=== PATIENT | female | born 1940 | race Caucasian/White ===

== ENCOUNTER 2022-05-07 12:54 | Outpatient (RCR) | payer MEDICARE, OTHER, SELFPAY | END 2023-05-01 23:59 | disposition home or self-care (01) | PROVIDERS: PCP Family Medicine; Visit Provider Family Medicine | DX: R53.1 Weakness (principal); R20.0 Anesthesia of skin; Z51.89 Encounter for other specified aftercare | CPT/HCPCS: 97165 ==

== ENCOUNTER 2022-06-03 09:04 | Outpatient (CLI) | payer MEDICARE, OTHER, SELFPAY | END 2022-06-03 09:05 | disposition home or self-care (01) | LOC: OP CLINIC 09:06 | PROVIDERS: PCP Family Medicine; Visit Provider Internal Medicine Gastroenterology | DX: K52.9 Noninfective gastroenteritis and colitis, unspecified (principal) | CPT/HCPCS: 45380; 88305; 99153; J2250; J3010 ==

== ENCOUNTER 2023-12-22 12:41 | Emergency (ER) | payer MEDICARE, OTHER, SELFPAY ==
[2023-12-22 12:52] VITALS: BP 112/76; PULSE 71; RESP 16; TEMP 36.2; O2SAT 98; BMI 19.4
--- NOTE | 2023-12-22 12:58 | ED_ITS ---
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 Did steroids twice but stopped them due to the side effects. Has been more anxious and under stress since passed a few years ago, and patient now having eye troubles that she goes to [facility] for. She has lost a few pounds and now weighs 105.8lbs . Normally 109lbs. Friday was nauseous but did not throw up. Celebrated her birthday with family yesterday and was okay. Today she threw up her breakfast and feels something isn't right in her esophagus and stomach. Here for evaluation. Couldnt see her PCP until 83-year-old woman presenting to the emergency department with concern of intermittent diarrhea. She has not noted any hematochezia at this point. Underlying history microscopic colitis. She did vomit her breakfast this morning and just feels that something isn't right. Is down a few lb of weight. Has had diarrheal stools over the last few days yesterday had 3 bowel movements 1 of which was formed. Has not had any fever. Isn't having terrible pain the stomach is a little more gurgly. Is anticipating a trip with her sons and family who are visiting, to the [place] and does not want to be feeling unwell during that trip. Would like to feel better. She does feel like she can keep her fluids down. Underlying history of stress as noticed above and seems to suggest that stress might be contributing to her current symptoms. Has been taking some supplements particularly in the form of probiotics which she thinks have been helpful. Related Data Home Medications Medication Instructions Recorded Confirmed acetaminophen 650 mg 650 mg PO DAILY 12/22/23 12/22/23 tablet,extended release (Pain Relief (acetaminophen)) alendronate 70 mg tablet 70 mg PO .weekly 12/22/23 12/22/23 aspirin 81 mg capsule 81 mg PO DAILY 12/22/23 12/22/23 levothyroxine 75 mcg tablet 75 mcg PO DAILY 12/22/23 12/22/23 Allergies Allergy/AdvReac Type Severity Reaction Status Date / Time thimerosal Allergy Intermediate Rash Verified 06/03/22 12:10 insect venom Allergy Mild Itching Verified 06/03/22 12:10 Hibaclens Allergy Mild Rash Uncoded 06/03/22 12:10 Review of Systems Status of ROS: Reports: 6 or more systems reviewed and unremarkable except as noted in History and below Exam Narrative: Exam Narrative: Pleasant. Thin. Smaller stature. Elaborating. Breathing easily. Oropharynx is little dry. Lungs are clear. Breathing easily. Heart in regular rate and rhythm. Abdomen is soft and a ittle uncomfortable to palpation lower abdomen but really pretty benign. No peritoneal signs. No masses either. Extremities are well perfused. Lower extremities are without edema Const: Vital Signs, click to edit/add: Vital Signs - 24 hr 12/22/23 12:52 Temperature 97.1 F L Pulse Rate [Pulse Oximeter] 71 Respiratory Rate 16 Blood Pressure [Ri ght Upper Arm] 112/76 Pulse Oximetry 98 Oxygen Delivery Me thod Room Air Documenting provider has reviewed patient's vital signs: yes Course Vital Signs Vital signs: Initial Vital Signs Temperature 97.1 F L 12/22/23 12:52 Temperature Source Temporal Artery Scan 12/22/23 12:52 Pulse Rate 71 12/22/23 12:52 Pulse Rhythm Regular 12/22/23 12:52 Pulse Strength 3+ Normal 12/22/23 12:52 Respiratory Rate 16 12/22/23 12:52 Blood Pressure 112/76 12/22/23 12:52 Blood Pressure Mean 88 12/22/23 12:52 Blood Pressure Position Sitting 12/22/23 12:52 Pulse Oximetry 98 12/22/23 12:52 Oxygen Delivery Method Room Air 12/22/23 12:52 Vital Signs Temperature 97.1 F L 12/22/23 12:52 Pulse Rate 71 12/22/23 12:52 Respiratory Rate 16 12/22/23 12:52 Blood Pressure 112/76 12/22/23 12:52 Pulse Oximetry 98 12/22/23 12:52 Oxygen Delivery Method Room Air 12/22/23 12:52 Temperature 97.1 F L 12/22/23 12:52 Pulse Rate 71 12/22/23 12:52 Respiratory Rate 16 12/22/23 12:52 Blood Pressure 112/76 12/22/23 12:52 Pulse Oximetry 98 12/22/23 12:52 Oxygen Delivery Method Room Air 12/22/23 12:52 Medications Administered Medications: Discontinued Medications Generic Name Dose Route Start Last Admin Trade Name Florentin PRN Reason Stop Dose Admin Ondansetron HCl 4 mg 12/22/23 14:46 12/22/23 14:55 Ondansetron Odt 4 Mg Tab PO 12/22/23 14:47 4 mg ONCE ONE Administration Medical Decision Making MDM Narrative Medical decision making narrative: Unclear what was exactly being asked during our conversation. Clarified to that she would like to feel better and I think just wants to make sure that nothing more is wrong. Has not reached out to primary other than trying to get an appointment and not being able to get 1 for some weeks. Did offer some IV hydration though she does not feel it will be necessary. Will check some labs for red flags, inflammatory markers. Physical exam is pretty benign at this time. Will give a dose of Zofran. Think this would help her feel better Labs labs are reassuring generally with a sodium of 131. Unsure baseline. Labs also would not suggest significant inflammation. I did discuss this case with Dr. Auguste her GI provider. Thinks less likely microscopic colitis as also with vomiting. Taper dosing of betamethasone however was discussed verses loperamide and Pepto-Bismol. Ms. Lucas has used loperamide successfully in the past. Responded well to antiemetic. Did feel better. Was ready to depart the emergency department with good vitals. Considering upcoming travel with family and mild lymphocytic suppression in CBC, did opt to swab for COVID prior to departure. This will be done with triple swab due to community prevalence of influenza and associated gastrointestinal symptoms. See patient discharge plan for further discussion Lab Data Lab results reviewed: Yes I reviewed the patient's lab results Labs: Lab Results 12/22/23 12/22/23 12/22/23 Range/Units 15:04 16:32 17:50 WBC 4.47 L (4.50-11.00) K/uL RBC 3.93 L (4.00-5.20) m/uL Hgb 12.5 (12.0-16.0) gm/dL Hct 38.4 (33.0-51.0) % MCV 98 (80-100) fL MCH 32 (26-34) pg MCHC 33 (32-36) gm/dL RDW Coeff of La 13.0 (11.5-15.5) % Plt Count 301 (140-440) K/uL Neut % (Auto) 64.4 (42.0-72.0) % Lymph % (Auto) 17.4 L (20-44) % [place]eson % (Auto) 11.2 H (0.0-11.0) % Eos % (Auto) 6.3 (0.0-7.0) % Baso % (Auto) 0.7 (0.0-3.0) % Neut # (Auto) 2.90 (1.7-7.0) K/uL Lymph # (Auto) 0.80 L (0.90-2.90) K/uL Robeson # (Auto) 0.50 (0.00-0.90) K/UL Eos # (Auto) 0.30 (0.00-0.50) K/uL Baso # (Auto) 0.00 (0.00-0.30) K/uL Abs Immat Gran (auto) 0.00 (0.00-0.30) K/uL Imm/Tot Granulo (auto) 0.0 % ESR 9 (2-20) mm/hr Sodium 131 L (135-149) mmol/L Potassium 3.8 (3.6-5.1) mmol/L Chloride 100 (96-114) mmol/L Carbon Dioxide 28 (20-32) mmol/L Anion Gap 3 L (7-15) mEq/L BUN 13 (7-30) mg/dL Creatinine 0.6 (0.5-1.5) mg/dL Estimated Creat Clear 32.86 Estimated GFR 90 ml/min Glucose 89 (60-115) mg/dL Calcium 9.1 (8.4-10.6) mg/dL Magnesium 2.2 (1.5-2.6) mg/dL C-Reactive Protein < 0.5 L (0.5-1.0) mg/dL Urine Color Yellow (Yellow) Urine Appearance Clear (Clear) Urine pH 7.0 (5.0-8.5) Ur Specific [place] 1.015 (1.000-1.030) Urine Protein Negative (Negative) Urine Glucose (UA) Negative (Negative) Urine Ketones Negative (Negative) Urine Blood Negative (Negative) Urine Nitrite Negative (Negative) Urine Bilirubin Negative (Negative) Urine Urobilinogen 0.2 (0.2-1.0) Ur Leukocyte Esterase Negative (Negative) Urine RBC 0-2 (0-2) Urine WBC 0-2 (0-5) Ur Squamous Epith Cells Few (None-Few) Urine Bacteria None (None) SARS-CoV-2 (PCR) Negative SARS-CoV-2 (Negative) Influenza Type A (PCR) Negative PCR FLU A (Negative) Influenza Type B (PCR) Negative PCR FLU B (Negative) RSV (PCR) Negative PCR RSV (Negative) Discharge Plan Discharge Clinical Impression: Diarrhea, Hyponatremia, Nausea Patient Disposition: Home w/ Parent or Adult Condition: Stable Additional Instructions: Do focus on hydration. I suppose it does not hurt that if you are feeling run down or with episodes of diarrhea or vomiting that you take some electrolyte drinks like reconstituted Powerade or Gatorade Will be giving you some Zofran from [facility]. I agree that continuing to talk about stressors in your life is a good idea. Does not sound that you are having a major flare of your microscopic colitis so will hold on budesonide. Dr. Auguste thought you might try Pepto-Bismol your stools dark. We will call you if your swab is positive and make further plans at that time. Prescriptions: No Action alendronate 70 mg tablet 70 mg PO .weekly levothyroxine 75 mcg tablet 75 mcg PO DAILY acetaminophen [Pain Relief (acetaminophen)] 650 mg tablet extended release 650 mg PO DAILY aspirin 81 mg capsule 81 mg PO DAILY Follow Up/Referrals: Renate Mahan MD [Referring] - Stand Alone Forms: [employer] Info Instructions
[2023-12-22] MEDS: ONDANSETRON ODT 4 MG TAB PO (14:55)
[2023-12-22 15:25] LABS: Basophils Percent Auto 0.7 % (0.0-3.0); Eosinophils Percent Auto 6.3 % (0.0-7.0); Hematocrit 38.4 % (33.0-51.0); Hemoglobin* 12.5 gm/dL (12.0-16.0); Lymphocytes Percent Auto 17.4 % (20-44); Mean Corpuscular HGB Conc 33 gm/dL (32-36); Mean Corpuscular Hemoglobin 32 pg (26-34); Mean Corpuscular Volume 98 fL (80-100); Monocytes Percent Auto 11.2 % (0.0-11.0); Neutrophils Percent Auto 64.4 % (42.0-72.0); Platelet Count* 301 K/uL (140-440); Red Blood Count 3.93 m/uL (4.00-5.20); White Blood Count* 4.47 K/uL (4.50-11.00)
[2023-12-22 15:29] LABS: Slide Review Reflex No
[2023-12-22 15:39] LABS: Chloride* 100 mmol/L (96-114); Potassium* 3.8 mmol/L (3.6-5.1); Sodium* 131 mmol/L (135-149)
[2023-12-22 15:41] LABS: Creatinine* 0.6 mg/dL (0.5-1.5); Est. Creatinine Clearance* 32.86; Estimated Glomerular Filt Rate 90 ml/min
[2023-12-22 15:42] LABS: Anion Gap 3 mEq/L (7-15); Blood Urea Nitrogen* 13 mg/dL (7-30); Calcium* 9.1 mg/dL (8.4-10.6); Carbon Dioxide* 28 mmol/L (20-32); Glucose* 89 mg/dL (60-115)
[2023-12-22 15:43] LABS: Magnesium* 2.2 mg/dL (1.5-2.6)
[2023-12-22 15:45] LABS: C Reactive Protein* < 0.5 mg/dL (0.5-1.0)
[2023-12-22 16:38] LABS: Appearance Urine Clear (Clear); Bilirubin Urine Negative (Negative); Blood Urine Negative (Negative); Color Urine Yellow (Yellow); Glucose Urine Negative (Negative); Ketones Urine Negative (Negative); Leukocyte Esterase Urine Negative (Negative); Nitrite Urine Negative (Negative); Protein Urine Negative (Negative); Specific Gravity Urine 1.015 (1.000-1.030); Urobilinogen Urine 0.2 (0.2-1.0)
[2023-12-22 16:56] LABS: RBC Urine 0-2 (0-2); Squamous Epithelial Cell Urine Few (None-Few); WBC Urine 0-2 (0-5)
[2023-12-22 16:59] LABS: Erythrocyte SedimentationRate* 9 mm/hr (2-20)
[2023-12-22 20:09] LABS: PCR FLU A Negative PCR FLU A (Negative); PCR FLU B Negative PCR FLU B (Negative); PCR RSV Negative PCR RSV (Negative); SARS PCR* Negative SARS-CoV-2 (Negative)
== END 2023-12-22 18:04 | disposition home or self-care (01) ==
PROVIDERS: Emergency Provider Family Medicine; PCP Family Medicine
DX: R19.7 Diarrhea, unspecified (principal); E87.1 Hypo-osmolality and hyponatremia
CPT/HCPCS: 36415; 80048; 81001; 83735; 85025; 85651; 86140; 87631; 99283; 99284; A9270

== ENCOUNTER 2024-09-22 10:21 | Outpatient (RCR) | payer MEDICARE, OTHER, SELFPAY | END 2025-01-20 23:59 | disposition home or self-care (01) | PROVIDERS: PCP Family Medicine; Visit Provider Family Medicine | DX: R41.89 Other symptoms and signs involving cognitive functions and awareness (principal); Z51.89 Encounter for other specified aftercare | CPT/HCPCS: 97165 ==

== ENCOUNTER 2025-03-14 06:19 | Day surgery (SDC) | payer MEDICARE, OTHER, SELFPAY ==
[2025-03-14] VITALS (8 sets, daily range): BP systolic 101–132; BP diastolic 70–85; PULSE 56–91; RESP 15–16; TEMP 36.7–36.8; O2SAT 95–100
[2025-03-14] MEDS: ETHYL CHLORIDE 1 APPLICATION 1 APPLIC TOPICAL (06:40)
[2025-03-14] MEDS: BUPIVACAINE 0.5% 30 ML INJECTION (06:40)
[2025-03-14] MEDS: LIDOCAINE 1%-EPI 1:100,000 20 ML INFILTRATI (06:40)
--- NOTE | 2025-03-14 07:53 | P.ORPRC_ITS ---
Procedure Note Date of procedure: 03/14/25 Procedure: PREOPERATIVE DIAGNOSIS: 1. Right carpal tunnel syndrome POSTOPERATIVE DIAGNOSIS: 1. Right carpal tunnel syndrome PROCEDURE: 1. Right open carpal tunnel release SURGEON: Derrick Acharya MD. SALES SERVICE PROFESSIONAL: Bob Salinas PA-C ANESTHESIA: Local anesthetic (50:50 mixture of 1% lidocaine with epi and 0.5% marcaine [plain]) - 8ml total IMPLANTS: None EBL: 2 mL TOURNIQUET: None COMPLICATIONS: None evident INDICATIONS: The patient is a pleasant 84yo Female who has experienced right hand numbess/tingling affecting the radial 3.5 digits for multiple months. It has progressively gotten worse. Nonoperative management has been tried and failed, and therefore surgery was recommended. DESCRIPTION OF PROCEDURE: Following a thorough discussion of risks, benefits, and alternatives consent was obtained and the operative extremity was marked. The patient was brought to the operating room and placed supine on the operating table. Local anesthesia induction was undertaken in preop holding. No antibiotics were administered as this was planned to be a local case only. Proper time-out was performed identifying proper patient, site, and procedure. The operative extremity was prepped and draped in the appropriate sterile fashion using ChloraPrep. An incision was made in line with the radial border of the ring finger beginning 1 cm distal to the distal wrist crease and progressing for another 2.5cm distal. Caution was taken to stay proximal to Riddle's cardinal line. Sharp incision through the skin, subcutaneous tissue, and palmar fascia was performed. The thenar musculature was bluntly elevated off the transverse carpal ligament. The ligament was directly visualized, and divided sharply with a 15 blade. This was released from its most proximal to the most distal extent. Metzenbaum scissor was also utilized to release the fascia extension proximally. We confirmed complete release of the transverse carpal ligament. Closure was performed with 4-O nylon in interrupted fashion. Soft dressings were applied, and the patient was transferred to the recovery room in stable condition. PLAN: 1. Encourage elevation of the operative extremity. 2. Range of motion of the fingers and hand/wrist as tolerated. 3. Ibuprofen/acetaminophen as needed for pain control. 4. Follow up with PA visit or nurse visit in 12-16 days for wound check and suture removal.
[2025-03-14] MEDS: BACITRACIN OINTMENT BULK TUBE 1 APPLIC TOPICAL (07:59)
== END 2025-03-14 08:16 | disposition home or self-care (01) ==
LOC: OR 06:21
PROVIDERS: PCP Family Medicine; Visit Provider Orthopaedic Surgery Sports Medicine
PROC: (CPT 64721; principal; 2025-03-14 07:15)
DX: G56.01 Carpal tunnel syndrome, right upper limb (principal)
CPT/HCPCS: 64721; J0665

== ENCOUNTER 2025-05-23 10:04 | Outpatient (RCR) | payer MEDICARE, OTHER, SELFPAY | END 2025-09-20 23:59 | disposition home or self-care (01) | PROVIDERS: PCP Family Medicine; Visit Provider Family Medicine | DX: Z48.89 Encounter for other specified surgical aftercare (principal); G56.01 Carpal tunnel syndrome, right upper limb; Z51.89 Encounter for other specified aftercare | CPT/HCPCS: 97165 ==